=== PATIENT | male | born 1965 | race Caucasian/White ===

== ENCOUNTER 2016-02-24 14:19 | Inpatient (IN) | payer MEDICAID ==
[~2016-02-24] VITALS: Ht 160 cm; Wt 69.3 kg
[2016-02-24] MEDS ORDERED: SOD CHLORIDE 0.9% 1,000 ML IV STA (16:25)
[2016-02-24] MEDS ORDERED: ACYCLOVIR 1,000 MG in DEXTROSE 5% 100 ML IVPB ONE (16:30)
[2016-02-24] MEDS ORDERED: DIPHENHYDRAMINE 50 MG INJ IV ONE (16:30)
[2016-02-24] MEDS ORDERED: IBUPROFEN 600 MG TAB PO ONE (16:30)
--- NOTE | 2016-02-24 17:37 | RADRPT ---
PROCEDURE: CHEST 1VW CLINICAL INDICATION: Fever, body aches TECHNIQUE: Single frontal view of the chest was obtained COMPARISON: None. FINDINGS: The cardiac size is normal. Aortic vascular calcifications are demonstrated. There is no pulmonary vascular congestion. Bibasilar atelectasis. The lungs are otherwise clear. No consolidation, effusion, or pneumothorax. Mild degenerative changes of the visualized osseous structures are visualized. IMPRESSION: 1. No acute cardiopulmonary process. Bibasilar atelectasis. 2. Atherosclerosis. RPTAT:PP .Darren Moses MD, MD Date Time Electronically viewed and signed by .Darren Moses MD, on 02/24/2016 17:37 .V/
[2016-02-24 17:41] LABS: HEMATOCRIT 45.7 % (42.0-52.0); HEMOGLOBIN 15.4 g/dl (14.0-18.0); MEAN CORPUSCULAR HEMOGLOBIN 28.6 pg (29.0-33.0); MEAN CORPUSCULAR HGB CONC 33.7 g/dl (32.0-37.0); MEAN CORPUSCULAR VOLUME 84.8 fl (82.0-101.0); MEAN PLATELET VOLUME 7.4 fl (7.4-10.4); MONOCYTE # 0.7 10^3/ul (0.3-0.9); PLATELET COUNT 174 10^3/UL (140-440); RED BLOOD COUNT 5.38 10^6/ul (4.70-6.10); RED CELL DISTRIBUTION WIDTH 13.2 % (11.5-14.5); UNCORRECTED WBC 4.6 10^3/ul (4.8-10.8); WHITE BLOOD COUNT 4.6 10^3/ul (4.8-10.8)
--- NOTE | 2016-02-24 17:42 | RADRPT ---
PROCEDURE: CT Brain without contrast. CLINICAL INDICATION: Headache, fever. TECHNIQUE: A CT of the brain without contrast was performed utilizing axial sections from the skul l base through the vertex. The patient was scanned without intravenous contrast enhancement. Sagitta l and coronal reformatted images were obtained using the data from the axial images. Total exam DLP is 720.23 mGy-cm. CTDIvol is 44.52 mGy. One or more of the following dose reduction techniques we re used: Automated exposure control, adjustment of the mA and/or kV according to patient size, use o f iterative reconstruction technique. COMPARISON: None available FINDINGS: There is an ill-defined region of decreased attenuation within the white matter of the right frontal lobe superiorly posteriorly measuring 1.2 x 1.2 cm. There is no mass effect. The stephens and white m atter differentiation is otherwise normal. The ventricles and cisterns are normal. There is no midline shift. There is no intracranial hemorrhage or space-occupying lesion. There is no extra-axial fluid collect ion. There is no skull fracture or lytic lesion. IMPRESSION: 1. Ill-defined region of decreased attenuation in the white matter of the right frontal lobe superi corey posteriorly. No mass effect. Correlation with MRI of the brain should be considered. 2. No intracranial hemorrhage. 3. Otherwise unremarkable study. RPTAT: QQ .Kerwin Coombs MD, Date Time Electronically viewed and signed by .Kerwin Coombs MD, on 02/24/2016 17:42 .R/
[2016-02-24 17:43] LABS: CONDITION 1; LH ANALYZER COMMENTS 1
[2016-02-24 17:48] LABS: ALBUMIN 4.4 g/dl (3.3-4.9); POTASSIUM 4.2 mmol/L (3.5-5.1)
[2016-02-24 17:50] LABS: CREATININE 0.81 mg/dl (0.61-1.24)
[2016-02-24 17:51] LABS: ALBUMIN/GLOBULIN RATIO 1.12; BILIRUBIN,INDIRECT 0.2 mg/dl (0-1.1); BILIRUBIN,TOTAL 0.2 mg/dl (0.2-1.3); CALCIUM 9.1 mg/dl (8.4-10.2); TOTAL PROTEIN 8.3 g/dl (6.1-8.1)
[2016-02-24 18:39] LABS: LYMPHOCYTES # 0.9 10^3/ul (0.8-2.9)
[2016-02-24 18:40] LABS: HYPOCHROMASIA 1+; PLATELET ESTIMATE PLT APPEAR ADEQUATE
--- NOTE | 2016-02-24 19:14 | ERA ---
ER Documentation Chief Complaint Date/Time DATE: 02/24/16 TIME: 18:56 Chief Complaint FEVER, BODYACHES, HEADACHE, ONSET 2 DAYS HPI 50-year-old man presents with red itchy rash since yesterday associated with tactile fevers, body aches, and headache. He denies sick contacts or recent travel, no recent antibiotic use, no vomiting or diarrhea. Patient denies previous similar rash. He does not recall being vaccinated against herpes zoster. He denies chest pain or shortness of breath, no abdominal pain, no neck pain or stiffness. 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 Patient denies photophobia. ROS All systems reviewed and are negative except as per history of present illness. Allergies Allergies: Coded Allergies: No Known Allergy (Unverified , 02/24/16) PMhx/Soc None Medical and Surgical Hx: pt denies Medical Hx, pt denies Surgical Hx Hx Alcohol Use: No Hx Substance Use: No Hx Tobacco Use: No Smoking Status: Never smoker FmHx Family History: No diabetes Physical Exam Vitals Vital Signs Date Time Temp Pulse Resp B/P Pulse Ox O2 Delivery O2 Flow Rate FiO2 02/24/16 14:38 98.8 90 17 132/75 98 Physical Exam GENERAL: Well-developed, well-nourished, well-hydrated, in no apparent distress , looks nontoxic in appearance HEENT: Moist mucous membranes, pink conjunctiva, no cervical spine tenderness or step-off deformities, no goiter, no jaundice or icterus, extraocular movements intact without pain. No submandibular induration, and no pharyngeal erythema. No Kernig's sign or Brudzinski's sign NEURO: Alert and oriented 3, cranial nerves II through XII intact bilaterally, pupils equal round reactive to light, no focal deficits or facial asymmetry, sensation intact distally Strength 5/5 in upper and lower extremities bilaterally CARDIAC: Regular rate and rhythm, no murmurs rubs or gallops LUNGS: Clear bilaterally no wheezing crackles or stridor ABDOMEN: Soft nontender, no guarding, no rigidity, no rebound, no psoas sign no obturator sign. Normoactive bowel sounds SKIN: Diffuse erythematous papular lesions in various stages including vesicles , pustules, crusts mostly over the torso and early spread to the proximal extremities, no ulcers, no Nikolsky sign, no target lesions EXTREMITIES: No clubbing cyanosis or edema, calves are bilaterally symmetrical, no Homans sign, no popliteal cord sign. Distal pulses equal and bilateral PSYCH: Normal affect without agitation or irritability Result Diagram: 02/24/16 1720 02/24/16 1720 Results 24 hrs Laboratory Tests Test 02/24/16 17:20 Alanine Aminotransferase (ALT/SGPT) 56IU/L Albumin 4.4g/dl Albumin/Globulin Ratio 1.12 Alkaline Phosphatase 79IU/L Anion Gap 20 Aspartate Amino Transf (AST/SGOT) 42IU/L Basophils # Pending Basophils % Pending Blood Morphology Comment Blood Urea Nitrogen 16mg/dl Calcium Level 9.1mg/dl Carbon Dioxide Level 28mmol/L Chloride Level 100mmol/L Creatinine 0.81mg/dl Direct Bilirubin 0.00mg/dl Eosinophils # Pending Eosinophils % Pending Globulin 3.90g/dl Glucose Level 113mg/dl Hematocrit 45.7% Hemoglobin 15.4g/dl Hypochromasia 1+ Indirect Bilirubin 0.2mg/dl Lipase 91U/L Lymphocytes # Pending Lymphocytes % Pending Mean Corpuscular Hemoglobin 28.6pg Mean Corpuscular Hemoglobin Concent 33.7g/dl Mean Corpuscular Volume 84.8fl Mean Platelet Volume 7.4fl Monocytes # 0.710^3/ul Monocytes % Pending Neutrophils # Pending Neutrophils % Pending Nucleated Red Blood Cells # 0.010^3/ul Nucleated Red Blood Cells % 0.0/100WBC Platelet Count 05928^3/UL Platelet Estimate PLT APPEAR ADEQUATE Potassium Level 4.2mmol/L Red Blood Count 5.3810^6/ul Red Cell Distribution Width 13.2% Sodium Level 144mmol/L Total Bilirubin 0.2mg/dl Total Protein 8.3g/dl White Blood Count 4.610^3/ul Current Medications Medications (Trade) Dose Ordered Sig/Panchito Route PRN Reason Start Time Stop Time Status Last Admin Dose Admin Ibuprofen (Motrin) 600 mg ONCE ONCE PO 02/24/16 16:30 02/24/16 16:33 DC 02/24/16 17:02 Diphenhydramine HCl 50 mg 50 mg ONCE ONCE IV 02/24/16 16:30 02/24/16 16:33 DC 02/24/16 17:02 Acyclovir 1000 mg/ Dextrose 100 ml @ 500 mls/hr ONCE ONCE IVPB 02/24/16 16:30 02/24/16 16:41 DC 02/24/16 17:42 Sodium Chloride (NS) 1,000 ml @ 1,000 mls/hr Q1H STAT IV 02/24/16 16:25 02/24/16 17:24 DC 02/24/16 17:02 Procedures/MDM IV line was established patient was placed on director of cardiac cath lab rhythm strip revealed a sinus rhythm at about 90 bpm. Patient was afebrile. I administered 1 L normal saline intravenously, ibuprofen 600 mg p.o., diphenhydramine 50 mg IV, acyclovir 1 g IV. One AP view of the chest performed, read by me reveals no acute infiltrates, normal mediastinum, sharp costophrenic and cardiac borders, no air under the diaphragm. Otherwise unremarkable chest x-ray. CT scan was of the brain was performed revealing a hypodensity in the superior right frontal lobe in the white matter region. In the setting of varicella- zoster this is concerning. Patient will be admitted to [facility] for continued antiviral therapy and MR imaging of the brain. CBC was unremarkable, electrolytes normal, liver function tests are normal, Departure Diagnosis: Primary Impression: Varicella-zoster infection Condition: DENG Elizondo MD Feb 24, 2016 19:10
[2016-02-24 19:55] VITALS: TEMP 99
[2016-02-24 20:25] VITALS: Ht 160 cm; Wt 69.3 kg
[2016-02-24] MEDS ORDERED: SOD CHLORIDE 0.9% 250 ML IV ONE (21:00)
[2016-02-24] MEDS ORDERED: ONDANSETRON 4 MG INJ IV PRN (21:00)
[2016-02-24 21:30] VITALS: BP 108/76; RESP 18
[2016-02-25 08:08] VITALS: BP 112/72; RESP 20
--- NOTE | 2016-02-25 09:03 | RADRPT ---
AMENDMENT: 02/25/2016 9:05:32 AM Ramsey Kearns M.D. A small enhancing ovoid lesion is identified in the right parotid gland, superficial lobe measuring up to 1.1 cm. This is nonspecific, possibly a lymph node with a couple of smaller additional lymph nodes seen in the parotid glands bilaterally, however, parotid lesion is difficult to exclude. Constance elate clinically. PROCEDURE: MRI Brain without and with contrast. CLINICAL INDICATION: Fever, body, headache, chickenpox TECHNIQUE: Multiplanar MRI of the brain without and with contrast was performed on a 3.0 T scanner with the following sequences obtained: T1-weighted, T2-weighted/FLAIR, diffusion weighted (with ADC map), GRE, postcontrast T1-weighted. 10 cc Magnevist intravenous contrast were administered. COMPARISON: CT brain 02/24/2016 FINDINGS: No acute/recent ischemic infarction or intracranial hemorrhage / blood degradation products are iden tified. No intracranial mass lesion is identified. No extra-axial fluid collection is seen. There is no mass effect. No midline shift is identified. The ventricles and sulci are within normal limits for size and configuration. A few scattered punctate foci of increased T2-weighted FLAIR signal intensity are seen in the deep w jhoan matter bilaterally. Otherwise signal intensity is unremarkable throughout the cerebrum, brains tem and cerebellum. No abnormal parenchymal, leptomeningeal or dural enhancement is identified. Flow voids are identified in the proximal intracranial arteries and dural sinuses suggesting patency . The mastoid air cells and paranasal sinuses are grossly clear. IMPRESSION: 1. No evidence of acute intracranial pathology, or intracranial mass. 2. Minimal nonspecific white matter changes, which could reflect chronic small vessel ischemic deutsch ges. RPTAT: VV .Ramsey Kearns MD, MD Date Time Electronically viewed and signed by .Ramsey Kearns MD, MD on 02/25/2016 09:06 .O/
[2016-02-25] MEDS: ACYCLOVIR 500 MG in DEXTROSE 5% 100 ML IVPB SCH ×3 (09:10→22:09)
[2016-02-25] MEDS ORDERED: ACETAMINOPHEN 325 MG TAB PO PRN (10:00)
--- NOTE | 2016-02-25 10:17 | HP ---
DATE OF ADMISSION: 02/24/2016 TIME SEEN: 2300. CHIEF COMPLAINT: Skin rash and headaches. HISTORY OF PRESENT ILLNESS: The patient is a 50-year-old male with no significant past medical hist ory who presented to the emergency department with a generalized rash and occasional diffuse headach es. He stated his symptoms had been going on for the past few days, worsening yesterday. He denied chest pain, shortness of breath, fever, chills, nausea and vomiting. On presentation to the ER, ex cept for a WBC of 4.6, his labs and vitals are within normal limits. CT of the head shows ill-defin ed region on the frontal area with the radiology recommending an MRI. On physical examination, the patient has what appears like chickenpox and as such, he has been admitted on isolation for further workup. REVIEW OF SYSTEMS: A 12-point review was performed, negative except as mentioned in HPI. PAST MEDICAL HISTORY: As per HPI. PAST SURGICAL HISTORY: As per HPI. SOCIAL HISTORY: Denied a history of tobacco, alcohol or illicit drug abuse, does drink alcohol occa sionally. ALLERGIES: NO KNOWN DRUG ALLERGIES. HOME MEDICATIONS: None. PHYSICAL EXAMINATION: VITAL SIGNS: Stable. GENERAL: The patient lying in bed in no acute distress, answering questions appropriately. She re sponds through an spanish interpreter and he is able to speak in full sentences. HEENT: No obvious head deformity. There is a diffuse papular rash on the face. Pupils are reactiv e to light. Extraocular muscles intact. CARDIOVASCULAR: Regular rate and rhythm. No extra sounds. LUNGS: Clear. ABDOMEN: Soft, nontender, nondistended. Positive bowel sounds. EXTREMITIES: No edema. SKIN: He has a generalized papular rashes throughout his body. NEUROLOGIC: No focal deficits. LABORATORY: WBC 4.6. Otherwise, CBC and CMP within acceptable range. IMAGING: CT of the head with results as mentioned in the HPI. IMPRESSION: 1. Diffuse body rash, likely chickenpox. 2. Headache, with abnormal head CT findings. 3. Mild leukopenia. PLAN: Will continue isolation. I will start him on acyclovir. Will order varicella and herpes vir us serology and culture. I will place an ID consult. Given the abnormal the head CT as well as sugar mcnair that he mentioned earlier, will obtain an MRI of the head for further evaluation and based on the findings, will place appropriate consult as needed. Further workup and management per clinical course. Dictated By: DACIA VOGT/GABBI Conf#: [id number] DID#: [id number]
--- NOTE | 2016-02-25 12:38 | PN ---
Date/Time of Note Date/Time of Note DATE: 02/25/16 TIME: 12:35 Assessment/Plan VTE Prophylaxis VTE Prophylaxis Intervention: SCD's Lines/Catheters IV Catheter Type (from Nrs): Saline Lock Urinary Cath still in place: No Assessment/Plan Assessment/Plan 1. Diffuse body rash, likely folliculitis, antibiotics with keflex, follow up with ID 2. Headache, unremarkable MRI 3. Mild leukopenia. Subjective 24 Hr Interval Summary Free Text/Dictation no pain, headache today. Exam/Review of Systems Vital Signs Vitals Vital Signs Date Time Temp Pulse Resp B/P Pulse Ox O2 Delivery O2 Flow Rate FiO2 02/25/16 09:30 100.6 02/25/16 08:08 101 20 112/72 98 02/24/16 19:55 Room Air Intake and Output 02/24/16 02/24/16 02/25/16 14:59 22:59 06:59 Intake Total 250 ml 850 ml Balance 250 ml 850 ml Exam Constitutional: alert, oriented, well developed Psych: nl mood/affect, no complaints Head: atraumatic, normocephalic Eyes: EOMI, PERRL, nl conjunctiva, nl lids, nl sclera ENMT: mucosa pink and moist, nl external ears & nose, nl lips & teeth, nl nasal mucosa & septum Neck: non-tender, supple Respiratory: clear to auscultation, normal air movement Cardiovascular: nl pulses, regular rate and rhythm Gastrointestinal: nl liver, spleen, non-tender, other, soft, No ascites, No bowel sounds, No distended, No firm, No hepatomegaly, No mass , No rebound or guarding, No splenomegaly, No surgical scars, No tender Musculoskeletal: nl extremities to inspection, nl gait and stance Extremities: normal pulses 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0 Globulin 3.90 H Glucose Level 113 Hematocrit 45.7 Hemoglobin 15.4 Hypochromasia 1+ Indirect Bilirubin 0.2 Lipase 91 Lymphocytes # 0.9 Lymphocytes % 20.0 Mean Corpuscular Hemoglobin 28.6 L Mean Corpuscular Hemoglobin Concent 33.7 Mean Corpuscular Volume 84.8 Mean Platelet Volume 7.4 Monocytes # 0.7 Monocytes % 15.0 H Neutrophils # 3.0 Neutrophils % 65.0 Nucleated Red Blood Cells # 0.0 Nucleated Red Blood Cells % 0.0 Platelet Count 174 Platelet Estimate PLT APPEAR ADEQUATE Potassium Level 4.2 Red Blood Count 5.38 Red Cell Distribution Width 13.2 Sodium Level 144 Total Bilirubin 0.2 Total Protein 8.3 H White Blood Count 4.6 L Medications Medications Current Medications Ondansetron HCl 4 mg 4 mg Q6H PRN IV NAUSEA AND/OR VOMITING; Start 02/24/16 at 21:00 Acyclovir/Dextrose (Zovirax/D5W) 100 ml @ 100 mls/hr Q8 IVPB Last administered on 02/25/16t 09:10; Admin Dose 100 MLS/HR; Start 02/25/16 at 07:00 Acetaminophen (Tylenol Tab) 650 mg Q8H PRN PO PAIN AND OR ELEVATED TEMP; Start 02/25/16 at 10:00 KAILA SARABIA MD Feb 25, 2016 12:38
[2016-02-25] MEDS: CEFAZOLIN 1 GM/50 ML (PMX) 50 ML IVPB SCH ×2 (14:47→21:33)
[2016-02-25 20:58] VITALS: BP 117/69; PULSE 103; RESP 18; RESP 20
[2016-02-25 20:59] VITALS: BP 117/69; RESP 20
[2016-02-25 22:00] VITALS: BP 118/70; PULSE 80; RESP 18
[2016-02-26] VITALS: BP 119/74; PULSE 72; RESP 18
[2016-02-26] MEDS ORDERED: ACETAMINOPHEN 325 MG TAB PO ONE
[2016-02-26 02:00] VITALS: BP 115/80; PULSE 85; RESP 18
[2016-02-26] MEDS: CEFAZOLIN 1 GM/50 ML (PMX) 50 ML IVPB SCH ×2 (05:47→13:18)
[2016-02-26] MEDS: ACYCLOVIR 500 MG in DEXTROSE 5% 100 ML IVPB SCH ×3 (06:24→21:41)
[2016-02-26 07:46] VITALS: BP 126/72; RESP 20
--- NOTE | 2016-02-26 15:41 | PN ---
Date/Time of Note Date/Time of Note DATE: 02/26/16 TIME: 15:33 Assessment/Plan VTE Prophylaxis VTE Prophylaxis Intervention: SCD's Lines/Catheters IV Catheter Type (from Nrs): Saline Lock Urinary Cath still in place: No Assessment/Plan Assessment/Plan 1. Diffuse body rash, likely folliculitis, antibiotics with keflex, follow up with ID 2. Headache, unremarkable MRI 3. Mild leukopenia. Subjective 24 Hr Interval Summary Free Text/Dictation feels better, no fever Exam/Review of Systems Vital Signs Vitals Vital Signs Date Time Temp Pulse Resp B/P Pulse Ox O2 Delivery O2 Flow Rate FiO2 02/26/16 07:46 98.2 80 20 126/72 98 02/26/16 02:00 Room Air Intake and Output 02/25/16 02/25/16 02/26/16 15:00 23:00 07:00 Intake Total 1180 ml 1000 ml Balance 1180 ml 1000 ml Exam Constitutional: alert, oriented, well developed Psych: nl mood/affect, no complaints Head: atraumatic, normocephalic Eyes: EOMI, PERRL, nl conjunctiva, nl lids, nl sclera ENMT: mucosa pink and moist, nl external ears & nose, nl lips & teeth, nl nasal mucosa & septum Neck: non-tender, supple Respiratory: clear to auscultation, normal air movement Cardiovascular: nl pulses, regular rate and rhythm, No S3, No S4, No bruits, No diastolic murmur, No edema, No gallop, No irregular rhythm, No jugular venous distention (JVD), No murmurs/extra sounds, No rub, No systolic murmur Gastrointestinal: nl liver, spleen, non-tender, soft, No ascites, No bowel sounds, No distended, No firm, No hepatomegaly, No mass , No rebound or guarding, No splenomegaly, No surgical scars, No tender Musculoskeletal: nl extremities to inspection Extremities: normal pulses 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, nl mental status, nl speech, nl strength Skin: other (geberalized rashes) Results Result Diagram: 02/24/16 1720 02/24/16 1720 Medications Medications Current Medications Ondansetron HCl 4 mg 4 mg Q6H PRN IV NAUSEA AND/OR VOMITING; Start 02/24/16 at 21:00 Acyclovir/Dextrose (Zovirax/D5W) 100 ml @ 100 mls/hr Q8 IVPB Last administered on 02/26/16 14:48; Admin Dose 100 MLS/HR; Start 02/25/16 at 07:00 Acetaminophen 650 mg 650 mg Q8H PRN PO PAIN AND OR ELEVATED TEMP; Start at 10:00 Cefazolin Sodium (Ancef 1 Gm/50 ml (Pmx)) 50 ml @ 100 mls/hr Q8 IVPB Last administered on 02/26/16 13:18; Admin Dose 100 MLS/HR; Start 02/25/16 at 14:00 KAILA SARABIA MD Feb 26, 2016 15:41
--- NOTE | 2016-02-26 19:17 | CONS ---
DATE OF ADMISSION: 02/24/2016 DATE OF CONSULTATION: 02/26/2016 TYPE OF CONSULTATION: Infectious disease. REASON FOR CONSULTATION: Antibiotic management. HISTORY OF PRESENT ILLNESS: Tanner Barcenas is a 50-year-old male who comes in with skin rash and head aches. He has no past medical history of significance. He came in with generalized rash and occasi onal diffuse headaches. His symptoms have been going on for a few days prior to admission, worsenin g on the . He denied chest pain, shortness of breath, fever, chills, nausea, or vomiting. His white count was 4.[address] scan of the head shows ill-defined region on the frontal area with the radiology recommendation for MRI. On physical examination, patient appeared as if he had c hickenpox and was admitted for workup. On admission, his white count was 4.6, H and H of 15.4 and 4 5.7, platelet count 174,000. BUN and creatinine was 16/0.81. MRI of the brain showed no evidence o f acute intracranial pathology, minimal nonspecific white matter changes. A CT scan of the brain: Ill-defined region of decreased attenuation in the white matter. No intracranial hemorrhage. A gisele st x-ray showed no acute cardiopulmonary process, bibasilar atelectasis, atherosclerosis. The patie nt was started on cefazolin and also on acyclovir 500 mg IV piggyback q.8 hours. PAST MEDICAL HISTORY: Operations as outlined. FAMILY HISTORY: Noncontributory. SOCIAL HISTORY: Does not smoke or abuse drugs. He does occasionally drink alcohol. ALLERGIES: NONE TO PENICILLIN, SULFA, OR FOODS. MEDICATIONS: Per chart. REVIEW OF SYSTEMS: As per HPI. PHYSICAL EXAMINATION: GENERAL: The patient is a well-developed, well-nourished male lying in bed in no acute distress. VITAL SIGNS: Stable. He is afebrile. SKIN: He has a diffuse papular rash on the face. He actually has generalized papular rash over his body. HEENT: Extraocular movements are intact. Conjunctivae pale. Sclerae nonicteric. Pupils are equal , round, reactive to light. Mouth without pharyngeal exudate or injection. LUNGS: Clear to P and A. HEART: Without murmur or gallop. ABDOMEN: Soft, nontender without organosplenomegaly or masses. EXTREMITIES: Without cyanosis, clubbing, or edema. RECTAL AND GENITAL: Deferred. NEUROLOGIC: No focal neurological abnormalities. IMPRESSION AND PLAN: The patient has diffuse rash. Currently, it may be a folliculitis. The patie nt was put on cefazolin, which I do not agree with. We may want to get a biopsy of the rash or at [facility] change him to Bactrim from cefazolin. I will dictate my findings to the hospitalist. Dictated By: BAY BURNS MD, JD/NTS Conf#: [id number] DID#: [id number] CC: KELLY BUNN MD;*EndCC*
[2016-02-26 20:25] VITALS: BP 120/84; RESP 20
[2016-02-26] MEDS: TRIMETHOPRIM/SULFAMETHOX (DS) TAB PO SCH (21:05)
[2016-02-27] MEDS: ACYCLOVIR 500 MG in DEXTROSE 5% 100 ML IVPB SCH ×3 (05:12→21:22)
[2016-02-27 06:17] LABS: BASOPHILS % 0.4 % (0.0-2.0); EOSINOPHILS # 0.1 10^3/ul (0.0-0.5); EOSINOPHILS % 0.9 % (0.0-7.0); HEMATOCRIT 43.1 % (42.0-52.0); HEMOGLOBIN 14.6 g/dl (14.0-18.0); LYMPHOCYTES # 2.8 10^3/ul (0.8-2.9); MEAN CORPUSCULAR HEMOGLOBIN 28.7 pg (29.0-33.0); MEAN CORPUSCULAR HGB CONC 33.9 g/dl (32.0-37.0); MEAN CORPUSCULAR VOLUME 84.6 fl (82.0-101.0); MEAN PLATELET VOLUME 7.4 fl (7.4-10.4); MONOCYTE # 1.4 10^3/ul (0.3-0.9); MONOCYTES % 15.8 % (0.0-11.0); NEUTROPHIL # 4.7 10^3/ul (1.6-7.5); NEUTROPHILS % 51.9 % (39.0-77.0); PLATELET COUNT 193 10^3/UL (140-440); RED BLOOD COUNT 5.09 10^6/ul (4.70-6.10); RED CELL DISTRIBUTION WIDTH 13.1 % (11.5-14.5)
[2016-02-27 06:19] LABS: CONDITION 1; LH ANALYZER COMMENTS 1
[2016-02-27 07:50] VITALS: BP 128/77; RESP 16
[2016-02-27] MEDS: TRIMETHOPRIM/SULFAMETHOX (DS) TAB PO SCH ×2 (08:50→20:29)
--- NOTE | 2016-02-27 14:44 | PN ---
Date/Time of Note Date/Time of Note DATE: 02/27/16 TIME: 14:37 Assessment/Plan VTE Prophylaxis VTE Prophylaxis Intervention: SCD's Lines/Catheters IV Catheter Type (from [facility]): Saline Lock Urinary Cath still in place: No Assessment/Plan Assessment/Plan 1. Diffuse body rash, folliculitis versus chicken pox, on bactrim and acyclovir , follow up with ID and culture 2. Headache, unremarkable MRI Subjective 24 Hr Interval Summary Free Text/Dictation afebrile, no new rashes Exam/Review of Systems Vital Signs Vitals Vital Signs Date Time Temp Pulse Resp B/P Pulse Ox O2 Delivery O2 Flow Rate FiO2 02/27/16 07:50 97.8 91 16 128/77 96 02/26/16 02:00 Room Air Intake and Output 02/26/16 02/26/16 02/27/16 15:00 23:00 07:00 Intake Total 150 ml 840 ml 380 ml Balance 150 ml 840 ml 380 ml Exam Constitutional: alert, oriented, well developed Psych: nl mood/affect, no complaints Head: atraumatic, normocephalic Eyes: EOMI, PERRL, nl conjunctiva, nl lids, nl sclera ENMT: nl external ears & nose, nl lips & teeth, nl nasal mucosa & septum Neck: non-tender, supple Respiratory: clear to auscultation, normal air movement, No congested cough, No crackles/rales, No diminished breath sounds, No intercostal retraction, No labored breathing, No respirations, No tactile fremitus, No wheezing Cardiovascular: nl pulses, regular rate and rhythm, No S3, No S4, No bruits, No diastolic murmur, No edema, No gallop, No irregular rhythm, No jugular venous distention (JVD), No murmurs/extra sounds, No rub, No systolic murmur Gastrointestinal: nl liver, spleen, non-tender, soft, No ascites, No bowel sounds, No distended, No firm, No hepatomegaly, No mass , No rebound or guarding, No splenomegaly, No surgical scars, No tender Extremities: normal pulses, No calf tenderness, No clubbing, No cyanosis, No edema, No palpable cord, No pitting pedal edema, No tenderness Neurological: BOBBIN DOFFER 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, nl mental status, nl speech, nl strength Skin: other (diffuse rashes) Results Result Diagram: 02/27/16 0522 02/24/16 1720 Results 24 hrs Laboratory Tests Test 02/27/16 05:22 Basophils # 0.0 Basophils % 0.4 Blood Morphology Comment Eosinophils # 0.1 Eosinophils % 0.9 Hematocrit 43.1 Hemoglobin 14.6 Lymphocytes # 2.8 Lymphocytes % 31.0 Mean Corpuscular Hemoglobin 28.7 L Mean Corpuscular Hemoglobin Concent 33.9 Mean Corpuscular Volume 84.6 Mean Platelet Volume 7.4 Monocytes # 1.4 H Monocytes % 15.8 H Neutrophils # 4.7 Neutrophils % 51.9 Nucleated Red Blood Cells # 0.0 Nucleated Red Blood Cells % 0.0 Platelet Count 193 Red Blood Count 5.09 Red Cell Distribution Width 13.1 White Blood Count 9.0 # Medications Medications Current Medications Ondansetron HCl 4 mg 4 mg Q6H PRN IV NAUSEA AND/OR VOMITING; Start 02/24/16 at 21:00 Acyclovir/Dextrose (Zovirax/D5W) 100 ml @ 100 mls/hr Q8 IVPB Last administered on 02/27/16 13:19; Admin Dose 100 MLS/HR; Start 02/25/16 at 07:00 Acetaminophen (Tylenol Tab) 650 mg Q8H PRN PO PAIN AND OR ELEVATED TEMP; Start 02/25/16 at 10:00 Trimethoprim/ Sulfamethoxazole (Bactrim (Ds)) 1 tab BID PO Last administered on 02/27/16 08:50; Admin Dose 1 TAB; Start 02/26/16 at 21:00 KAILA SARABIA MD Feb 27, 2016 14:44
[2016-02-27 20:01] VITALS: BP 116/71; RESP 16
[2016-02-28] MEDS: ACYCLOVIR 500 MG in DEXTROSE 5% 100 ML IVPB SCH (05:46)
[2016-02-28 07:35] VITALS: BP 110/64; RESP 20
[2016-02-28] MEDS: TRIMETHOPRIM/SULFAMETHOX (DS) TAB PO SCH ×2 (09:26→21:09)
--- NOTE | 2016-02-28 13:39 | PN ---
DATE: 02/28/2016 INFECTIOUS DISEASE PROGRESS NOTE SUBJECTIVE: No changes overnight. No fevers. The patient is alert. Denies pain, discomfort. No itching. No labs. MICROBIOLOGY: Nasal swab is negative. ANTIMICROBIALS: The patient is on Bactrim and acyclovir. PHYSICAL EXAMINATION: GENERAL: Well developed, well nourished middle-aged man, who is alert , in no distress. HEENT: Head atraumatic, normocephalic. Sclerae are anicteric. Buccal mucosa pink. NECK: Supple, trachea midline. CHEST: Chest rise is symmetrical. Breath sounds clear. HEART: S1, S2. ABDOMEN: Soft. Bowel tones present. EXTREMITIES: Without cyanosis. The patient has a diffuse generalized maculopapular rash over the body. ASSESSMENT: 1. Body rash. 2. Status post systemic inflammatory response syndrome, with low-grade fevers. PLAN: The patient remains stable, awaiting for skin biopsy. Dictated By: IAIN PERSAUD SIDER ania CONDON/GABBI Conf#: [id number] DID#: [id number] MTDD
[2016-02-28 14:01] LABS: HERPES SIMPLEX 1 DNA NOT DETECTED; HERPES SIMPLEX 2 DNA NOT DETECTED; HERPES SIMPLEX PCR SOURCE SWAB
[2016-02-28] MEDS: ACYCLOVIR 800 MG TAB PO SCH ×2 (14:05→21:09)
--- NOTE | 2016-02-28 15:24 | PN ---
Date/Time of Note Date/Time of Note DATE: 02/28/16 TIME: 15:22 Assessment/Plan VTE Prophylaxis VTE Prophylaxis Intervention: SCD's Lines/Catheters IV [facility]from [facility] Saline Lock Urinary Cath still in place: No Assessment/Plan Assessment/Plan 1. Diffuse body rash, on bactrim and oral acyclovir, follow up with ID and biopsy 2. Headache, resolved Subjective 24 Hr Interval Summary Free Text/Dictation no new complaint, afebrile Exam/Review of Systems Vital Signs Vitals Vital Signs Date Time Temp Pulse Resp B/P Pulse Ox O2 Delivery O2 Flow Rate FiO2 02/28/16 07:35 98.4 72 20 110/64 94 02/26/16 02:00 Room Air Intake and Output 02/27/16 02/27/16 02/28/16 15:00 23:00 07:00 Intake Total 1640 ml 780 ml Balance 1640 ml 780 ml Exam Constitutional: alert, oriented, well developed Psych: nl mood/affect, no complaints Head: atraumatic, normocephalic Eyes: EOMI, PERRL, nl conjunctiva, nl lids, nl sclera ENMT: mucosa pink and moist, nl external ears & nose, nl lips & teeth, nl nasal mucosa & septum Neck: non-tender, supple Respiratory: clear to auscultation, normal air movement, No congested cough, No crackles/rales, No diminished breath sounds, No intercostal retraction, No labored breathing, No respirations, No tactile fremitus, No wheezing Cardiovascular: nl pulses, regular rate and rhythm, No S3, No S4, No bruits, No diastolic murmur, No edema, No gallop, No irregular rhythm, No jugular venous distention (JVD), No murmurs/extra sounds, No rub, No systolic murmur Gastrointestinal: nl liver, spleen, non-tender, soft, No ascites, No bowel sounds, No distended, No firm, No hepatomegaly, No mass , No rebound or guarding, No splenomegaly, No surgical scars, No tender Musculoskeletal: nl extremities to inspection Neurological: DEBRANDER 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, nl mental status, nl speech, nl strength Skin: other (healing rashes) Lymph: nl lymph nodes Results Result Diagram: 02/27/16 0522 02/24/16 1720 Medications Medications Current Medications Ondansetron HCl (Zofran Inj) 4 mg Q6H PRN IV NAUSEA AND/OR VOMITING; Start at 21:00 Acetaminophen (Tylenol Tab) 650 mg Q8H PRN PO PAIN AND OR ELEVATED TEMP; Start 02/25/16 at 10:00 Trimethoprim/ Sulfamethoxazole (Bactrim (Ds)) 1 tab BID PO Last administered on 02/28/16 09:26; Admin Dose 1 TAB; Start 02/26/16 at 21:00 Acyclovir (Zovirax) 800 mg TID PO Last administered on 02/28/16 14:05; Admin Dose 800 MG; Start 02/28/16 at 13:00 KAILA SARABIA MD Feb 28, 2016 15:24
[2016-02-28 20:00] VITALS: BP 113/72; RESP 18
[2016-02-29 07:50] VITALS: BP 111/73; RESP 16
[2016-02-29] MEDS: TRIMETHOPRIM/SULFAMETHOX (DS) TAB PO SCH ×2 (10:04→21:53)
[2016-02-29] MEDS: ACYCLOVIR 800 MG TAB PO SCH ×2 (10:04→12:32)
--- NOTE | 2016-02-29 17:00 | PN ---
Date/Time of Note Date/Time of Note DATE: 02/29/16 TIME: 16:59 Assessment/Plan VTE Prophylaxis VTE Prophylaxis Intervention: SCD's Lines/Catheters [facility] Saline Lock Urinary Cath still in place: No Assessment/Plan Chief Complaint/Hosp Course Assessment/Plan 50 M with: 1. Diffuse body rash, on bactrim and oral acyclovir. - follow up with ID and biopsy - will ask surgery team for possible biopsy as well - f/u final serology herpes studies 2. Headache, resolved - pain meds prn Problems: Subjective 24 Hr Interval Summary Free Text/Dictation No acute events overnight. Exam/Review of Systems Vital Signs Vitals Vital Signs Date Time Temp Pulse Resp B/P Pulse Ox O2 Delivery O2 Flow Rate FiO2 02/29/16 07:50 98.3 83 16 111/73 97 02/26/16 02:00 Room Air Intake and Output 02/28/16 02/28/16 02/29/16 15:00 23:00 07:00 Intake Total 1200 ml 480 ml Balance 1200 ml 480 ml Exam Constitutional: alert, oriented, well developed Psych: nl mood/affect, no complaints Head: atraumatic, normocephalic Eyes: EOMI, PERRL, nl conjunctiva, nl lids, nl sclera ENMT: mucosa pink and moist, nl external ears & nose, nl lips & teeth, nl nasal mucosa & septum Neck: non-tender, supple Respiratory: clear to auscultation, normal air movement, No congested cough, No crackles/rales, No diminished breath sounds, No intercostal retraction, No labored breathing, No respirations, No tactile fremitus, No wheezing Cardiovascular: nl pulses, regular rate and rhythm, No S3, No S4, No bruits, No diastolic murmur, No edema, No gallop, No irregular rhythm, No jugular venous distention (JVD), No murmurs/extra sounds, No rub, No systolic murmur Gastrointestinal: nl liver, spleen, non-tender, soft, No ascites, No bowel sounds, No distended, No firm, No hepatomegaly, No mass , No rebound or guarding, No splenomegaly, No surgical scars, No tender Musculoskeletal: nl extremities to inspection Neurological: SHOP CLERK 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, nl mental status, nl speech, nl strength Skin: other (healing rashes) Lymph: nl lymph nodes Results Result Diagram: 02/27/16 0522 Medications Medications Current Medications Ondansetron HCl (Zofran Inj) 4 mg Q6H PRN IV NAUSEA AND/OR VOMITING; Start at 21:00 Acetaminophen (Tylenol Tab) 650 mg Q8H PRN PO PAIN AND OR ELEVATED TEMP; Start 02/25/16 at 10:00 Trimethoprim/ Sulfamethoxazole (Bactrim (Ds)) 1 tab BID PO Last administered on 02/29/16 10:04; Admin Dose 1 TAB; Start 02/26/16 at 21:00 Acyclovir (Zovirax) 800 mg TID PO Last administered on 02/29/16 12:32; Admin Dose 800 MG; Start 02/28/16 at 13:00 CHRIS BELLO Feb 29, 2016 17:00
--- NOTE | 2016-02-29 17:40 | CONS ---
Date/Time of Note Date/Time of Note DATE: 02/29/16 TIME: 17:38 Consult Date/Type/Reason Admit Date/Time Feb 24, 2016 at 18:36 Initial Consult Date Reason for Consultation id Objective Vital Signs Date Time Temp Pulse Resp B/P Pulse Ox O2 Delivery O2 Flow Rate FiO2 02/29/16 07:50 98.3 83 16 111/73 97 02/26/16 02:00 Room Air Intake and Output 02/28/16 02/28/16 02/29/16 15:00 23:00 07:00 Intake Total 1200 ml 480 ml Balance 1200 ml 480 ml Results/Medications Result Diagram: 02/27/16 0522 Medications Current Medications Ondansetron HCl (Zofran Inj) 4 mg Q6H PRN IV NAUSEA AND/OR VOMITING; Start at 21:00 Acetaminophen (Tylenol Tab) 650 mg Q8H PRN PO PAIN AND OR ELEVATED TEMP; Start 02/25/16 at 10:00 Trimethoprim/ Sulfamethoxazole (Bactrim (Ds)) 1 tab BID PO Last administered on 02/29/16 10:04; Admin Dose 1 TAB; Start 02/26/16 at 21:00 Acyclovir (Zovirax) 800 mg TID PO Last administered on 02/29/16 12:32; Admin Dose 800 MG; Start 02/28/16 at 13:00 Assessment/Plan Chief Complaint/Hosp Course SUBJECTIVE: No changes overnight. No fevers. The patient is alert. Denies pain, discomfort. No itching. . MICROBIOLOGY: Nasal swab is negative. ANTIMICROBIALS: The patient is on Bactrim and acyclovir. PHYSICAL EXAMINATION: GENERAL: Well developed, well nourished middle-aged man, who is alert , in no distress. HEENT: Head atraumatic, normocephalic. Sclerae are anicteric. Buccal mucosa pink. NECK: Supple, trachea midline. CHEST: Chest rise is symmetrical. Breath sounds clear. HEART: S1, S2. ABDOMEN: Soft. Bowel tones present. EXTREMITIES: Without cyanosis. The patient has a diffuse generalized maculopapular rash over the body. ASSESSMENT: 1. Diffuse body rash ?folliculitis. 2. Status post systemic inflammatory response syndrome, with low-grade fevers. PLAN: The patient remains stable, HSV PCR negative, dc Acyclovir, await for skin biopsy, needs dermatology eval DW staff DW Dr Espinoza Problems: IAIN PERSAUD NP Feb 29, 2016 17:40
[2016-02-29 19:55] VITALS: BP 112/70; RESP 18
[2016-03-01 07:50] VITALS: BP 105/69; RESP 18
[2016-03-01] MEDS: TRIMETHOPRIM/SULFAMETHOX (DS) TAB PO SCH (08:28)
--- NOTE | 2016-03-01 13:37 | PN ---
Date/Time of Note Date/Time of Note DATE: 03/01/16 TIME: 13:35 Assessment/Plan VTE Prophylaxis VTE Prophylaxis Intervention: SCD's Lines/Catheters IV [facility]ter Type (from [facility]): Saline Lock Urinary Cath still in place: No Assessment/Plan Chief Complaint/Hosp Course Assessment/Plan 50 M with: 1. Diffuse body rash - possibly sec to folliculitis? now off acyclovir (HSV studies neg thus far) - follow up with ID and biopsy - will ask surgery team for possible biopsy as well - f/u final serology herpes studies 2. Headache, resolved - pain meds prn Problems: Subjective 24 Hr Interval Summary Free Text/Dictation No acute events overnight, seen by ID team yesterday. Exam/Review of Systems Vital Signs Vitals Vital Signs Date Time Temp Pulse Resp B/P Pulse Ox O2 Delivery O2 Flow Rate FiO2 03/01/16 07:50 97.6 81 18 105/69 97 Intake and Output 02/29/16 02/29/16 03/01/16 15:00 23:00 07:00 Intake Total 1000 ml 240 ml Balance 1000 ml 240 ml Exam Constitutional: alert, oriented, well developed Psych: nl mood/affect, no complaints Head: atraumatic, normocephalic Eyes: EOMI, PERRL, nl conjunctiva, nl lids, nl sclera ENMT: mucosa pink and moist, nl external ears & nose, nl lips & teeth, nl nasal mucosa & septum Neck: non-tender, supple Respiratory: clear to auscultation, normal air movement, No congested cough, No crackles/rales, No diminished breath sounds, No intercostal retraction, No labored breathing, No respirations, No tactile fremitus, No wheezing Cardiovascular: nl pulses, regular rate and rhythm, No S3, No S4, No bruits, No diastolic murmur, No edema, No gallop, No irregular rhythm, No jugular venous distention (JVD), No murmurs/extra sounds, No rub, No systolic murmur Gastrointestinal: nl liver, spleen, non-tender, soft, No ascites, No bowel sounds, No distended, No firm, No hepatomegaly, No mass , No rebound or guarding, No splenomegaly, No surgical scars, No tender Musculoskeletal: nl extremities to inspection Neurological: TENTMAKER 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, nl mental status, nl speech, nl strength Skin: other (healing rashes) Lymph: nl lymph nodes Results Result Diagram: 02/27/16 0522 Medications Medications Current Medications Ondansetron HCl (Zofran Inj) 4 mg Q6H PRN IV NAUSEA AND/OR VOMITING; Start at 21:00 Acetaminophen (Tylenol Tab) 650 mg Q8H PRN PO PAIN AND OR ELEVATED TEMP; Start 02/25/16 at 10:00 Trimethoprim/ Sulfamethoxazole (Bactrim (Ds)) 1 tab BID PO Last administered on 03/01/16t 08:28; Admin Dose 1 TAB; Start 02/26/16 at 21:00 CHRIS BELLO Mar 01, 2016 13:37
--- NOTE | 2016-03-01 14:56 | CONS ---
Date/Time of Note Date/Time of Note DATE: 03/01/16 TIME: 14:55 Consult Date/Type/Reason Admit Date/Time Feb 24, 2016 at 18:36 Type of Consultation: ID Subjective alert, feels good, wants to go home, no fevers Objective Vital Signs Date Time Temp Pulse Resp B/P Pulse Ox O2 Delivery O2 Flow Rate FiO2 03/01/16 07:50 97.6 81 18 105/69 97 Intake and Output 02/29/16 02/29/16 03/01/16 15:00 23:00 07:00 Intake Total 1000 ml 240 ml Balance 1000 ml 240 ml Results/Medications Result Diagram: 02/27/16 0522 Medications Current Medications Ondansetron HCl (Zofran Inj) 4 mg Q6H PRN IV NAUSEA AND/OR VOMITING; Start at 21:00 Acetaminophen (Tylenol Tab) 650 mg Q8H PRN PO PAIN AND OR ELEVATED TEMP; Start 02/25/16 at 10:00 Trimethoprim/ Sulfamethoxazole (Bactrim (Ds)) 1 tab BID PO Last administered on 03/01/16t 08:28; Admin Dose 1 TAB; Start 02/26/16 at 21:00 Assessment/Plan Chief Complaint/Hosp Course ANTIMICROBIALS: The patient is on Bactrim PHYSICAL EXAMINATION: GENERAL: Well developed, well nourished middle-aged man, who is alert , in no distress. HEENT: Head atraumatic, normocephalic. Sclerae are anicteric. Buccal mucosa pink. NECK: Supple, trachea midline. CHEST: Chest rise is symmetrical. Breath sounds clear. HEART: S1, S2. ABDOMEN: Soft. Bowel tones present. EXTREMITIES: Without cyanosis. The patient has a diffuse generalized maculopapular rash over the body. ASSESSMENT: 1. Diffuse body rash==> poss folliculitis==> improved. 2. Status post systemic inflammatory response syndrome, with low-grade fevers. PLAN: The patient remains stable, rash is improving, continue Bactrim, awaiting for skin biopsy [facility] staff/pt Problems: IAIN PERSAUD NP Mar 01, 2016 14:56
--- NOTE | 2016-03-23 16:42 | DS ---
Date/Time of Note Date/Time of Note DATE: 03/23/16 TIME: 16:42 Discharge Summary Admission/Discharge Info Admit Date/Time Feb 24, 2016 at 18:36 Discharge Date/Time Mar 01, 2016 at 15:00 Final Diagnosis Pt left AMA. Hospital Course ANTIMICROBIALS: The patient is on Bactrim PHYSICAL EXAMINATION: GENERAL: Well developed, well nourished middle-aged man, who is alert , in no distress. HEENT: Head atraumatic, normocephalic. Sclerae are anicteric. Buccal mucosa pink. NECK: Supple, trachea midline. CHEST: Chest rise is symmetrical. Breath sounds clear. HEART: S1, S2. ABDOMEN: Soft. Bowel tones present. EXTREMITIES: Without cyanosis. The patient has a diffuse generalized maculopapular rash over the body. ASSESSMENT: 1. Diffuse body rash==> poss folliculitis==> improved. 2. Status post systemic inflammatory response syndrome, with low-grade fevers. PLAN: The patient remains stable, rash is improving, continue Bactrim, awaiting for skin biopsy DW staff/pt Home Meds No Active Prescriptions or Reported Meds CHRIS BELLO Mar 23, 2016 16:42
== END 2016-03-01 15:00 | disposition left against medical advice (07) | DRG 607 ==
LOC: FTE 14:19 → PP2 18:36
PROVIDERS: ADMIT Internal Medicine; ATTEND Internal Medicine
DX: L73.8 Other specified follicular disorders (principal); R65.10 Systemic inflammatory response syndrome (SIRS) of non-infectious origin without acute organ dysfunction; R51 Headache; R21 Rash and other nonspecific skin eruption; D72.819 Decreased white blood cell count, unspecified
CPT/HCPCS: 36415; 70450; 70553; 71010; 80053; 83690; 85025; 86694; 87070; 87255; 87529; 96374; 96375; J0133; J0690; J1200; J7030; J7040

== ENCOUNTER 2016-07-29 16:16 | Emergency (ER) | payer SELFPAY ==
[~2016-07-29] VITALS: Ht 157.5 cm; Wt 69.0 kg
[2016-07-29 16:24] VITALS: Ht 157.5 cm; Wt 69.0 kg
--- NOTE | 2016-07-29 18:05 | ERD ---
ER Documentation Chief Complaint Date/Time DATE: 07/29/16 TIME: 17:59 Chief Complaint LEFT KNEE PAIN HPI This pleasant 51-year-old male patient presents to emergency department for chronic left knee pain located medially described as aching. Symptoms are aggravated with walking flexing squatting. Patient states pain has been intermittent for the last several months, patient has tried no [id number] medication for symptomatic relief. Patient denies injury or medical evaluation. 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 Patient is ambulating freely with slight limp. Denies swelling, fever, chills, pain behind his knee, patient denies knee locking or buckling. ROS All systems reviewed and are negative except as per history of present illness. Medications Home Meds Active Scripts Naproxen* (Naprosyn*) 500 Mg Tablet, 500 MG PO BID Y for PAIN AND/OR INFLAMMATION, #30 TAB Prov:JOEL MILES 07/29/16 Allergies Allergies: Coded Allergies: No Known Allergy (Unverified , 02/24/16) PMhx/Soc History of Surgery: No Anesthesia Reaction: No Hx Neurological Disorder: No Hx Respiratory Disorders: No Hx Cardiac Disorders: No Hx Psychiatric Problems: No Hx Miscellaneous Medical Probl: No Hx Alcohol Use: No Hx Substance Use: No Hx Tobacco Use: No Physical Exam Vitals Vitals stable, triage notes reviewed Physical Exam Const: Well-nourished, well-hydrated, afebrile, no acute Head: Atraumatic Eyes: Normal Conjunctiva ENT: Normal External Ears, Nose and Mouth. Neck: Full range of motion..~ No meningismus. Resp: Respirations even and unlabored, no respiratory distress Cardio: Abd: Skin: No petechiae or rashes Back: Ext: Lower Extremity -left knee Skin: No laceration, or bony deformity Compartments: Soft Motor: Full active range of motion hip/knee, flexion, extension ambulating freely without limp Sensation: Intact to light touch all surfaces. Bones: Nontender pelvis/knee/proximal tibia/ malleoli/foot Joints: No effusion or laxity Pulses/Perfusion: 2+ DP, Capillary refill < 2 seconds Neur: Awake and alert Psych: Normal Mood and Affect Procedures/MDM This pleasant 51-year-old male patient presents to emergency department for chronic knee pain. Patient has no acute injury, pain is been intermittent 3 months. Pain is aggravated with squatting standing and ambulating. I discussed treatment options and considered radiographic imaging, patient has no no injury, effusion is not suspected, a septic joint is not suspected, patient will not be subjected to radiation from x-ray today. Treated symptomatically with rest ice compression and elevation. Naprosyn 500 mg 1 tab p.o. twice daily 10 days I feel the patient is stable for discharge at this time outpatient management and follow-up with primary care physician for possible referral to orthopedics or physical therapy. I have discussed results, examination findings, the treatment plan with the patient and family present prior to discharge. Indications for emergent reevaluation, side effects of medication were also discussed. All questions were answered. Patient verbalizes understanding and agrees with plan of care. Departure Diagnosis: Primary Impression: Knee pain Laterality: left Chronicity: chronic Qualified Code: M25.562 - Chronic pain of left knee Condition: Good Patient Instructions: Knee Pain, Uncertain Cause Additional Instructions: Thank you for for coming to [facility] for your care today. Please ask your nurse or provider if you have questions about your care today and do not leave until all your questions have been answered. Please use any medications given as directed and follow-up with your doctor (or the doctor you were referred to) in the next 2-3 days. If you do not have a primary care doctor you may follow up at the [facility] [place] (listed below). You may also use motrin and tylenol as needed for fever and/or pain unless instructed otherwise by your provider or nurse. Indications for more urgent follow-up have been discussed, but you may return to the Emergency Department at ANY time for any worrisome or worsening symptoms. If you have abdominal pain, please know that no test or exam you received is perfect and you should follow up within 8 hours for continued pain. If you had any imaging studies today, such as an X-Ray or CT Scan, these studies will be reviewed later by a radiologist. You will be called if there are important findings that were not identified today, so make sure the contact information you provided at registration is correct. If you received any narcotic pain control medicine today, such as Vicodin, Morphine or Dilaudid, your coordination and judgment may be affected for a number of hours. Please do not drive or operate heavy machinery, and you may want someone to assist you at home. If you were given a prescription for narcotic medication, be aware that it is very addictive- use sparingly and only if necessary. JOEL MILES Jul 29, 2016 18:05
[2016-07-29] MEDS ORDERED: NAPR-260 PO (18:06)
== END 2016-07-29 18:00 | disposition home or self-care (01) ==
LOC: E/R 16:16
DX: M25.562 Pain in left knee (principal)
CPT/HCPCS: 99283